=== PATIENT | female | born 1985 | race Caucasian/White ===

== ENCOUNTER 2020-07-21 19:34 | Emergency (ER) | payer OTHER ==
[2020-07-21] MEDS ORDERED: KETOROLAC TROMETHAMINE 30 MG/1 ML VIAL IM ONE (20:01)
[2020-07-21 20:03] VITALS: BP 122/74; PULSE 68; TEMP 98.1; BMI 29.9
--- OUTSIDE RECORDS SUMMARY | 2020-07-21 20:05 | XMS ---
:1985 Author Organization [facility] Support Name Relationship Address Phone UE Unavailable Unavailable Unavailable [employer] [address] [place] [address] Re-disclosure Warning The records that you are about to access may contain information from federally- assisted alcohol or drug abuse programs. If such information is present, then the following federally mandated warning applies: This information has been disclosed to you from records protected by federal confidentiality rules (42 CFR part 2). The federal rules prohibit you from making any further disclosure of this information unless further disclosure is expressly permitted by the written consent of the person to whom it pertains or as otherwise permitted by 42 CFR part 2. A general authorization for the release of medical or other information is NOT sufficient for this purpose. The Federal rules restrict any use of the information to criminally investigate or prosecute any alcohol or drug abuse patient.The records that you are about to access may contain highly sensitive health information, the redisclosure of which is protected by Article 27-F of the [facility] Public Health law. If you continue you may haveaccess to information: Regarding HIV / AIDS; Provided by facilities licensed or operated by the [facility] Office of Mental Health; or Provided by the [facility] Office for People With Developmental Disabilities. If such information is present, then the following [facility] mandated warning applies: This information has been disclosed to you from confidential records which are protected by state law. State law prohibits you from making any further disclosure of this information without the specific written consent of the person to whom it pertains, or as otherwise permitted by law. Any unauthorized further disclosure in violation of state law may result in a fine or longterm sentence or both. A general authorization for the release of medical or other information is NOT sufficient authorization for further disclosure. Insurance Providers Payer name Policy type Policy ID Covered Covered constitution party's Policy P julia / Coverage constitution party ID relationship to Brothers Inf ormation type brothers MEDICAID [id number] SP [id number] MEDICARE [id number] SP [id number] A
--- NOTE | 2020-07-21 20:08 | PDOC ---
History of Present Illness - General Chief Complaint: Injury Stated Complaint: FALL Time Seen by Provider: 07/21/20 19:56 History Source: Patient Exam Limitations: No Limitations - History of Present Illness Initial Comments: 07/21/20 20:03 35-year-old female denies past medical history presents complaining of left ankle and foot pain status post mechanical injury 30 minutes prior to arrival. Patient states she twisted her ankle when she stepped on leaves covering uneven pavement. Denies head strike, neck pain, chest pain, back pain, abdominal pain, any other injury or complaint. Did not take any pain medication. Patient was able to stand up and bear weight. applied kennedy bandage. ROS: as above PE: GENERAL: well-appearing, NAD HEAD: NCAT EYES: Pupils equal, round and reactive to light, sclera anicteric, conjunctiva clear ENT: pharynx: no erythema, no exudate, uvula midline NECK: supple CHEST: nontender RESP: clear, no w/r/r CARDIO: rrr, no m/g/r ABD: +BS, soft, nontender, non distended BACK: no midline spinal ttp, no CVAT EXTREMITIES: Normal range of motion, minimal swelling noted to left foot, no ecchymoses, positive pedal pulses NEUROLOGICAL: Normal speech SKIN: Warm, Dry Is this a multiple visit Asthma Patient?: No Past History - Medical History Allergies/Adverse Reactions: Allergies Allergy/AdvReac Type Severity Reaction Status Date / Time No Known Allergies Allergy Verified 12/24/11 07:02 Home Medications: Ambulatory Orders (None) 12/23/11 Oxycodone HCl/Acetaminophen [Percocet 5/325] 1 combo PO Q4HWA PRN #40 tablet 12/24/11 Ibuprofen 600 mg PO Q6H #20 tablet 07/21/20 Anemia: No Asthma: No Cancer: No Cardiac Disorders: No CVA: No COPD: No CHF: No Dementia: No Diabetes: No GI Disorders: No Disorders: No HTN: No Hypercholesterolemia: No Liver Disease: No Seizures: No Thyroid Disease: No - Reproductive History Is Patient Now?: No - Psycho-Social/Smoking History Smoking History: Current every day smoker Number of Cigarettes Smoked Daily: 15 Information on smoking cessation initiated: Yes - Substance Abuse Hx (Audit-C & DAST Scrn) How often the patient has a drink containing alcohol: Never Score: In Men: 4 or > Positive; In Women: 3 or > Positive: 0 Screen Result (Pos requires Nsg. Audit-10AR): Negative *Physical Exam - Vital Signs Last Vital Signs Temp Pulse Resp BP Pulse Ox 98.1 F 68 20 122/74 98 07/21/20 19:37 07/21/20 19:37 07/21/20 19:37 07/21/20 19:37 07/21/20 19:37 ED Treatment Course - RADIOLOGY Radiology Studies Ordered: Category Date Time Status ANKLE & FOOT-LEFT* [RAD] Stat Radiology 07/21/20 20:01 Ordered Medical Decision Making - Medical Decision Making 07/21/20 20:08 35-year-old female denies past medical history presents complaining of left ankle and foot pain status post mechanical injury 30 minutes prior to arrival. Patient states she twisted her ankle when she stepped on leaves covering uneven pavement. Denies head strike, neck pain, chest pain, back pain, abdominal pain, any other injury or complaint. Did not take any pain medication. Patient was able to stand up and bear weight. applied kennedy bandage. L ankle and foot xray toradol 30 mg IM re assess 07/21/20 20:55 Left ankle and foot x-ray without acute fracture, one screw #4 has loosened from the plate on my wet read Kennedy bandage applied Patient advised to follow-up with orthopedics Weight bearing as tolerated Rest, elevate, compress and apply ice Discharge - Discharge Information Problems reviewed: Yes Clinical Impression/Diagnosis: Left ankle sprain Qualifiers: Encounter type: initial encounter Involved ligament of ankle: other ligament Qualified Code(s): S93.492A - Sprain of other ligament of left ankle, initial encounter Condition: Stable Disposition: HOME - Admission No - Additional Discharge Information Prescriptions: Ibuprofen 600 mg PO Q6H #20 tablet - Follow up/Referral Referrals: Eric Diego DO [Staff Physician] - Liban Hooker MD [Staff Physician] - Kurt Powers MD [Staff Physician] - - Patient Discharge Instructions - Post Discharge Activity
[2020-07-21] MEDS ORDERED: KETOROLAC TROMETHAMINE 30 MG/1 ML VIAL ONE (20:17)
== END 2020-07-21 21:02 | disposition home or self-care (01) ==
LOC: JER 19:34 → JERFT 19:34
PROC: 3E0233Z Introduction of Anti-inflammatory into Muscle, Percutaneous Approach (ICD-10-PCS; principal; 2020-07-21)
DX: S93.492A Sprain of other ligament of left ankle, initial encounter (principal)
CPT/HCPCS: 73610-TC-LT-FY; 73630-TC-LT; 99284-25

== ENCOUNTER 2022-08-12 16:06 | Emergency (ER) | payer OTHER ==
[2022-08-12 16:41] VITALS: BP 120/68; PULSE 72; RESP 19; TEMP 98.1; BMI 29.9
[2022-08-12] MEDS ORDERED: DIPHTH,PERTUSS(ACELL),TET 0.5 ML DISP.SYRIN IM ONE ×2 (18:03→18:07)
== END 2022-08-12 18:25 | disposition home or self-care (01) ==
LOC: JER 16:06 → JERFT 16:06
PROC: 0HQGXZZ Repair Left Hand Skin, External Approach (ICD-10-PCS; principal; 2022-08-12)
PROC: 3E0234Z Introduction of Serum, Toxoid and Vaccine into Muscle, Percutaneous Approach (ICD-10-PCS; 2022-08-12)
DX: S61.213A Laceration without foreign body of left middle finger without damage to nail, initial encounter (principal); W26.0XXA Contact with knife, initial encounter; Y93.G1 Activity, food preparation and clean up
CPT/HCPCS: 12001-25; 90471; 90715; 99284-25